=== PATIENT | female | born 1960 | race Caucasian/White ===

== ENCOUNTER 2018-05-14 10:03 | Emergency (ER) | payer OTHER ==
[~2018-05-14] VITALS: Ht 157.5 cm; Wt 78.1 kg
[2018-05-14 10:13] VITALS: Ht 157.5 cm; Wt 78.1 kg
[2018-05-14 11:54] VITALS: BP 160/90
== END 2018-05-14 12:10 | disposition home or self-care (01) ==
LOC: ED 10:03
DX: S16.1XXA Strain of muscle, fascia and tendon at neck level, initial encounter (principal); S39.012A Strain of muscle, fascia and tendon of lower back, initial encounter; S46.912A Strain of unspecified muscle, fascia and tendon at shoulder and upper arm level, left arm, initial encounter; I10 Essential (primary) hypertension; X58.XXXA Exposure to other specified factors, initial encounter; Y93.89 Activity, other specified; Y92.89 Other specified places as the place of occurrence of the external cause; Y99.8 Other external cause status
CPT/HCPCS: Q0092

== ENCOUNTER 2018-06-03 19:47 | Emergency (ER) | payer OTHER ==
[~2018-06-03] VITALS: Ht 157.5 cm; Wt 78.0 kg
[2018-06-03 19:57] VITALS: Ht 157.5 cm; Wt 78.0 kg
[2018-06-03 20:34] LABS: BASOPHIL % 0.6 % (0-2); PLATELET COUNT 257 x10^3mcL (130-400); RED CELL DISTRIBUTION WIDTH 13.4 % (11.5-14.5)
[2018-06-03 20:44] LABS: CALCIUM 8.6 mg/dL (8.5-10.1); CARBON DIOXIDE 22.7 mmol/L (21-32); CHLORIDE SERUM 103 mmol/L (98-107); CREATININE SERUM 0.6 mg/dL (0.6-1.0); GFR1 > 60 mL/min; GLUCOSE SERUM 93 mg/dL (74-106); POTASSIUM SERUM 3.7 mmol/L (3.5-5.1); SODIUM SERUM 139 mmol/L (136-145)
[2018-06-03 20:48] LABS: ALBUMIN 3.8 g/dL (3.4-5.0); ALKALINE PHOSPHATASE 68 U/L (46-116); ALT/SGPT 42 U/L (14-59); AST/SGOT 23 U/L (15-37); BILIRUBIN TOTAL 0.4 mg/dL (0.20-1.00); TOTAL PROTEIN, SERUM 7.6 g/dL (6.4-8.2)
[2018-06-03 22:16] VITALS: BP 140/88
== END 2018-06-03 22:16 | disposition home or self-care (01) ==
LOC: ED 19:47
PROVIDERS: Emergency Medicine
DX: I16.0 Hypertensive urgency (principal); Z88.6 Allergy status to analgesic agent
CPT/HCPCS: 36415

== ENCOUNTER 2020-04-08 23:20 | Emergency (ER) | payer BC ==
[~2020-04-08] VITALS: Ht 157.5 cm; Wt 78.5 kg
[2020-04-08 23:30] VITALS: Ht 157.5 cm; Wt 78.5 kg
[2020-04-09 02:55] VITALS: BP 168/96
== END 2020-04-09 02:55 | disposition home or self-care (01) ==
LOC: ED 23:20
DX: I16.0 Hypertensive urgency (principal); Z88.6 Allergy status to analgesic agent; V49.9XXA Car occupant (driver) (passenger) injured in unspecified traffic accident, initial encounter; Y93.89 Activity, other specified; Y92.89 Other specified places as the place of occurrence of the external cause; Y99.8 Other external cause status